=== PATIENT | male | born 1965 | race African-American/Black ===

== ENCOUNTER 2017-03-19 07:04 | Emergency (ER) | payer MEDICARE, MEDICAID ==
[~2017-03-19] VITALS: Ht 190.5 cm; Wt 86.0 kg
[2017-03-19 08:25] VITALS: BP 120/80
== END 2017-03-19 08:41 | disposition home or self-care (01) ==
LOC: ER 07:04
DX: N48.1 Balanitis (principal); B37.0 Candidal stomatitis; F17.200 Nicotine dependence, unspecified, uncomplicated; Z88.0 Allergy status to penicillin
CPT/HCPCS: 99283

== ENCOUNTER 2017-09-08 07:18 | Emergency (ER) | payer MEDICARE, MEDICAID ==
[~2017-09-08] VITALS: Ht 190.5 cm; Wt 87.0 kg
[2017-09-08] MEDS ORDERED: KETOROLAC 60MG/2ML VIAL IM ONE (08:15)
[2017-09-08 09:40] VITALS: BP 139/98
== END 2017-09-08 10:13 | disposition home or self-care (01) ==
LOC: ER 07:26
DX: M13.871 Other specified arthritis, right ankle and foot (principal); Z88.0 Allergy status to penicillin; F17.200 Nicotine dependence, unspecified, uncomplicated; Z98.890 Other specified postprocedural states
CPT/HCPCS: 73630; 96372; 99284; J1885

== ENCOUNTER 2018-05-05 10:13 | Emergency (ER) | payer MEDICARE, MEDICAID ==
[~2018-05-05] VITALS: Ht 188 cm; Wt 87.0 kg
[2018-05-05 12:48] VITALS: BP 130/90
== END 2018-05-05 12:50 | disposition home or self-care (01) ==
LOC: ER 10:13
DX: N48.1 Balanitis (principal); R03.0 Elevated blood-pressure reading, without diagnosis of hypertension; F12.90 Cannabis use, unspecified, uncomplicated
CPT/HCPCS: 99283

== ENCOUNTER 2018-12-14 11:58 | Emergency (ER) | payer MEDICARE, MEDICAID ==
[~2018-12-14] VITALS: Ht 190.5 cm; Wt 84.0 kg
[2018-12-14] MEDS ORDERED: KETOROLAC 60MG/2ML VIAL IM ONE (12:45)
[2018-12-14 14:20] VITALS: BP 101/72
== END 2018-12-14 14:25 | disposition home or self-care (01) ==
LOC: ER 11:58
DX: S50.01XA Contusion of right elbow, initial encounter (principal); W01.198A Fall on same level from slipping, tripping and stumbling with subsequent striking against other object, initial encounter; Y93.E5 Activity, floor mopping and cleaning; Y92.89 Other specified places as the place of occurrence of the external cause
CPT/HCPCS: 73060; 73090; 96372; 99283; J1885

== ENCOUNTER 2019-04-13 08:29 | Emergency (ER) | payer MEDICARE, MEDICAID ==
[~2019-04-13] VITALS: Ht 190.5 cm; Wt 86.0 kg
[2019-04-13] MEDS ORDERED: CARBAMIDE PEROXIDE 6.5% OTIC SOLN 15ML LEFT EAR ONE (09:15)
[2019-04-13 11:40] VITALS: BP 136/70
== END 2019-04-13 11:49 | disposition home or self-care (01) ==
LOC: ER 08:29
DX: H61.22 Impacted cerumen, left ear (principal); S00.432A Contusion of left ear, initial encounter; W21.03XA Struck by baseball, initial encounter; Y93.89 Activity, other specified; Y92.89 Other specified places as the place of occurrence of the external cause
CPT/HCPCS: 70486; 99284

== ENCOUNTER 2019-10-09 07:57 | Emergency (ER) | payer MEDICARE, MEDICAID ==
[~2019-10-09] VITALS: Ht 190.5 cm; Wt 78.0 kg
[2019-10-09] MEDS ORDERED: [UNRECOGNIZED DRUG - OTHER] (08:05)
[2019-10-09] MEDS ORDERED: POLYVINYL ALCOHOL OPHTH DROPS 15ML LEFTEYE STA (08:18)
[2019-10-09] MEDS ORDERED: VALACYCLOVIR HCL 500MG TABLET PO STA (08:18)
[2019-10-09] MEDS ORDERED: PREDNISONE 20MG TABLET PO ONE (08:30)
[2019-10-09 08:40] LABS: BASOPHILS % 1.2 % (0.0-2.0); EOSINOPHILS % 1.7 % (0.0-5.0); HEMATOCRIT. 37.3 % (42.0-52.0); HEMOGLOBIN. 12.5 g/dL (14.0-18.0); LYMPHOCYTES % 57.4 % (20.0-50.0); MEAN CORPUSCULAR VOLUME 92.2 fL (80.0-94.0); MEAN PLATELET VOLUME 8.1 fl (7.4-10.4); MONOCYTES % 11.3 % (2.0-8.0); NEUTROPHILS % 28.4 % (40.0-76.0); PLATELET 196 x1000/uL (130-400); RED BLOOD CELL COUNT 4.04 mill/uL (4.7-6.1); RED CELL DISTRIBUTION WIDTH 15.3 % (11.6-14.6)
[2019-10-09 08:43] LABS: CHLORIDE 108 mEq/L (98-107)
[2019-10-09 08:47] LABS: ETHANOL BLOOD < 10 mg/dL
[2019-10-09 10:17] LABS: CLARITY URINE CLEAR (CLEAR); COLOR URINE YELLOW (YELLOW); KETONES URINE NEGATIVE (NEGATIVE); LEUKOCYTE ESTERASE URINE NEGATIVE (NEGATIVE); NITRITE URINE NEGATIVE (NEGATIVE); OCCULT BLOOD URINE NEGATIVE (NEGATIVE); PROTEIN URINE NEGATIVE (NEGATIVE); SPECIFIC GRAVITY URINE 1.022 (1.005-1.030)
[2019-10-09 10:33] LABS: *AMPHETAMINES SCREEN URINE NEGATIVE (NEGATIVE); *BARBITURATES SCREEN URINE NEGATIVE (NEGATIVE); *BENZODIAZEPINES SCREEN URINE NEGATIVE (NEGATIVE); *COCAINE SCREEN URINE NEGATIVE (NEGATIVE); METHADONE URINE SCREEN NEGATIVE (NEGATIVE); OPIATES URINE SCREEN NEGATIVE (NEGATIVE)
[2019-10-09 10:34] LABS: CANNABINOID URINE SCREEN NEGATIVE (NEGATIVE); PHENCYCLIDINE URINE SCREEN NEGATIVE (NEGATIVE)
[2019-10-09 10:47] VITALS: BP 115/74
== END 2019-10-09 10:48 | disposition home or self-care (01) ==
LOC: ER 07:57
DX: G51.0 Bell's palsy (principal); R03.0 Elevated blood-pressure reading, without diagnosis of hypertension; F12.90 Cannabis use, unspecified, uncomplicated
CPT/HCPCS: 36415; 70450; 71045; 80053; 80305; 80320; 81003; 85025; 99284; J7512; G0480

== ENCOUNTER 2020-06-16 06:23 | Emergency (ER) | payer MEDICARE, MEDICAID ==
[~2020-06-16] VITALS: Ht 182.9 cm; Wt 75.0 kg
[~2020-06-16 06:23] MED LIST: [UNRECOGNIZED DRUG - OTHER]
[2020-06-16 06:43] VITALS: BP 115/77
[2020-06-16] MEDS ORDERED: IBUPROFEN 600MG TABLET PO ONE (06:45)
== END 2020-06-16 07:46 | disposition left against medical advice (07) ==
LOC: ER 06:23
DX: S90.31XA Contusion of right foot, initial encounter (principal); X31.XXXA Exposure to excessive natural cold, initial encounter; Y93.89 Activity, other specified; Y92.89 Other specified places as the place of occurrence of the external cause; Y99.8 Other external cause status; F12.10 Cannabis abuse, uncomplicated; Z88.0 Allergy status to penicillin
CPT/HCPCS: 99282

== ENCOUNTER 2020-09-26 09:22 | Emergency (ER) | payer MEDICARE, MEDICAID ==
[~2020-09-26] VITALS: Ht 182.9 cm; Wt 75.0 kg
[2020-09-26] MEDS ORDERED: ONDANSETRON HCL 4MG/2ML INJ IV STA (09:36)
[2020-09-26] MEDS ORDERED: MORPHINE SULFATE 4 MG/ML CPJ (NOT FOR IM USE) IV STA (09:36)
[2020-09-26] MEDS ORDERED: SODIUM CHLORIDE 0.9% 1,000 ML IV ONE (09:45)
[2020-09-26 10:01] LABS: HEMATOCRIT. 36.7 % (42.0-52.0); HEMOGLOBIN. 12.2 g/dL (14.0-18.0); MEAN CORPUSCULAR HEMOGLOBIN 30.6 pg (28.0-32.0); MEAN CORPUSCULAR VOLUME 92.4 fL (80.0-94.0); MEAN PLATELET VOLUME 8.2 fl (7.4-10.4); PLATELET 223 x1000/uL (130-400); RED BLOOD CELL COUNT 3.97 mill/uL (4.7-6.1)
[2020-09-26 10:04] LABS: CHLORIDE 104 mEq/L (98-107)
[2020-09-26 10:08] LABS: ETHANOL BLOOD < 10 mg/dL
[2020-09-26 10:09] LABS: CLARITY URINE CLEAR (CLEAR); COLOR URINE YELLOW (YELLOW); KETONES URINE TRACE (NEGATIVE); LEUKOCYTE ESTERASE URINE 1+ (NEGATIVE); NITRITE URINE NEGATIVE (NEGATIVE); OCCULT BLOOD URINE NEGATIVE (NEGATIVE); PH URINE 6.5 (4.5-8.0); PROTEIN URINE 1+ (NEGATIVE); SPECIFIC GRAVITY URINE 1.027 (1.005-1.030)
[2020-09-26 10:16] LABS: PLATELET ESTIMATE NORMAL
[2020-09-26 10:27] LABS: CANNABINOID URINE SCREEN PRESUMTIVE POSITIVE (NEGATIVE)
[2020-09-26 10:28] LABS: *AMPHETAMINES SCREEN URINE NEGATIVE (NEGATIVE); *BARBITURATES SCREEN URINE NEGATIVE (NEGATIVE); *BENZODIAZEPINES SCREEN URINE NEGATIVE (NEGATIVE); *COCAINE SCREEN URINE PRESUMTIVE POSITIVE (NEGATIVE); METHADONE URINE SCREEN NEGATIVE (NEGATIVE); OPIATES URINE SCREEN NEGATIVE (NEGATIVE)
[2020-09-26 10:29] LABS: PHENCYCLIDINE URINE SCREEN NEGATIVE (NEGATIVE)
[2020-09-26 11:15] LABS: INR 1.1; PROTHROMBIN TIME 11.6 sec (9.6-11.0)
[2020-09-26] MEDS ORDERED: IBUP-2029 MT (13:37)
[2020-09-26] MEDS ORDERED: LEVO500T89 MT (13:37)
[2020-09-26] MEDS ORDERED: TAMS-11 MT (13:37)
[2020-09-26 13:40] VITALS: BP 129/83
== END 2020-09-26 14:01 | disposition home or self-care (01) ==
LOC: ER 09:22
DX: N20.0 Calculus of kidney (principal); N39.0 Urinary tract infection, site not specified; F14.129 Cocaine abuse with intoxication, unspecified; R03.0 Elevated blood-pressure reading, without diagnosis of hypertension
CPT/HCPCS: 36415; 71045; 74176; 76705; 80053; 80305; 80320; 81003; 83690; 84484; 85025; 85610; 93005; 96374; 96375; 99285; J2270; J2405; J7030; G0480

== ENCOUNTER 2021-06-09 05:49 | Emergency (ER) | payer MEDICARE, MEDICAID ==
[~2021-06-09] VITALS: Ht 188 cm; Wt 88.0 kg
[~2021-06-09 05:49] MED LIST changes: +IBUP-2029 MT; +LEVO500T89 MT; +TAMS-11 MT
[2021-06-09 06:37] VITALS: BP 124/78
[2021-06-09] MEDS ORDERED: ACETAMINOPHEN WITH CODEINE 300/30MG TABLET PO ONE (07:00)
[2021-06-09] MEDS ORDERED: T3 PO (08:51)
== END 2021-06-09 09:21 | disposition home or self-care (01) ==
LOC: ER 05:49
DX: M54.9 Dorsalgia, unspecified (principal); I10 Essential (primary) hypertension; F12.10 Cannabis abuse, uncomplicated; Z98.890 Other specified postprocedural states; Z96.659 Presence of unspecified artificial knee joint
CPT/HCPCS: 71045; 72070; 99284

== ENCOUNTER → 2021-07-29 | Outpatient (CLI) | payer MEDICARE, MEDICAID ==
[~2021-07-29] MED LIST changes: +AMLO10TA80 MT; +T3 PO; +TRIVICAY PO
[2021-07-29 09:31] LABS: EOSINOPHILS % 3.4 % (0.0-5.0); HEMATOCRIT. 39.9 % (42.0-52.0); HEMOGLOBIN. 13.4 g/dL (14.0-18.0); LYMPHOCYTES % 58.6 % (20.0-50.0); MEAN CORPUSCULAR HEMOGLOBIN 31.6 pg (28.0-32.0); MEAN PLATELET VOLUME 7.6 fl (7.4-10.4); MONOCYTES % 9.6 % (2.0-8.0); NEUTROPHILS % 27.4 % (40.0-76.0); PLATELET 239 x1000/uL (130-400); RED BLOOD CELL COUNT 4.25 mill/uL (4.7-6.1); RED CELL DISTRIBUTION WIDTH 14.3 % (11.6-14.6)
[2021-07-29 09:36] LABS: CHLORIDE 110 mEq/L (98-107)
[2021-07-29 11:14] LABS: PROSTRATE SPECIFIC AG TOTAL 1.54 ng/mL (0.0-4.0)
[2021-07-29 11:20] LABS: CARCINO EMBRYONIC ANTIGEN < 0.5 ng/ml
[2021-07-30 09:09] LABS: KAPPA/LAMBDA RATIO 1.85 (0.26-1.65); LAMBDA LT CHAINS FREE SERUM 64.3 mg/L (5.7-26.3)
== END | disposition home or self-care (01) ==
LOC: LAB 09:01
PROVIDERS: ATTEND Internal Medicine Hematology & Oncology
DX: D47.2 Monoclonal gammopathy (principal)
CPT/HCPCS: 36415; 80053; 82378; 82784; 83883; 84153; 85025; 86334; G0103

== ENCOUNTER → 2021-08-08 | Outpatient (CLI) | payer MEDICARE, MEDICAID | END | disposition home or self-care (01) | LOC: RAD 08:57 | PROVIDERS: ATTEND Internal Medicine Hematology & Oncology | DX: M85.88 Other specified disorders of bone density and structure, other site (principal); M48.52XA Collapsed vertebra, not elsewhere classified, cervical region, initial encounter for fracture; M48.56XA Collapsed vertebra, not elsewhere classified, lumbar region, initial encounter for fracture; M47.812 Spondylosis without myelopathy or radiculopathy, cervical region; D47.2 Monoclonal gammopathy; M48.02 Spinal stenosis, cervical region | CPT/HCPCS: 77075 ==

== ENCOUNTER → 2021-08-11 | Day surgery (SDC) | payer MEDICARE, MEDICAID ==
[~2021-08-11] VITALS: Ht 190.5 cm; Wt 86.2 kg
[~2021-08-11] MED LIST changes: +HYDROMORPHONE HCL/PF 2MG/ML (OR) ONE; +LACTATED RINGERS 1,000 ML IV SCH; +LIDOCAINE HCL 1% 20ML VIAL (Pyxis) INJ ONE; +PROPOFOL 200MG/20ML VIAL IV ONE
== END | disposition home or self-care (01) ==
LOC: OR 07:28
PROVIDERS: ATTEND Pathology Anatomic Pathology & Clinical Pathology
DX: C90.00 Multiple myeloma not having achieved remission (principal); D47.2 Monoclonal gammopathy; I10 Essential (primary) hypertension; J44.9 Chronic obstructive pulmonary disease, unspecified; F32.9 Major depressive disorder, single episode, unspecified; K21.9 Gastro-esophageal reflux disease without esophagitis; Z79.899 Other long term (current) drug therapy; Z98.890 Other specified postprocedural states; Z72.89 Other problems related to lifestyle; Z82.49 Family history of ischemic heart disease and other diseases of the circulatory system; Z83.3 Family history of diabetes mellitus; Z88.0 Allergy status to penicillin; Z20.822 Contact with and (suspected) exposure to COVID-19
CPT/HCPCS: 38220; 85060; 85097; 87426; 88313; 93005; J1170; J2704; J3490

== ENCOUNTER 2022-06-27 07:35 | Emergency (ER) | payer MEDICARE, MEDICAID ==
[~2022-06-27] VITALS: Ht 182.9 cm; Wt 91.0 kg
[~2022-06-27 07:35] MED LIST changes: -HYDROMORPHONE HCL/PF 2MG/ML (OR) ONE; -LACTATED RINGERS 1,000 ML IV SCH; +LEVO-65 MT; -LEVO500T89 MT; -LIDOCAINE HCL 1% 20ML VIAL (Pyxis) INJ ONE; -PROPOFOL 200MG/20ML VIAL IV ONE
[2022-06-27 07:40] VITALS: BP 141/93
[2022-06-27] MEDS ORDERED: CLOT15CR27 TP (09:06)
== END 2022-06-27 09:11 | disposition home or self-care (01) ==
LOC: ER 07:57
DX: N48.1 Balanitis (principal); I10 Essential (primary) hypertension; Z87.442 Personal history of urinary calculi
CPT/HCPCS: 82962; 99281

== ENCOUNTER 2023-03-26 04:17 | Emergency (ER) | payer MEDICARE, MEDICAID ==
[~2023-03-26] VITALS: Ht 177.8 cm; Wt 100.0 kg
[~2023-03-26 04:17] MED LIST changes: +CLOT15CR27 TP
[2023-03-26 04:20] VITALS: TEMP 98.1; O2SAT 98
[2023-03-26 05:20] LABS: BASOPHILS % 0.6 % (0.0-2.0); EOSINOPHILS % 1.9 % (0.0-5.0); HEMATOCRIT. 43.9 % (42.0-52.0); HEMOGLOBIN. 14.5 g/dL (14.0-18.0); MEAN CORPUSCULAR HEMOGLOBIN 31.5 pg (28.0-32.0); MEAN CORPUSCULAR VOLUME 95.2 fL (80.0-94.0); MEAN PLATELET VOLUME 7.6 fl (7.4-10.4); MONOCYTES % 9.8 % (2.0-8.0); NEUTROPHILS % 35.7 % (40.0-76.0); PLATELET 280 x1000/uL (130-400); RED BLOOD CELL COUNT 4.61 mill/uL (4.7-6.1); RED CELL DISTRIBUTION WIDTH 15.3 % (11.6-14.6); WHITE BLOOD COUNT 4.7 x1000/uL (4.5-11.0)
[2023-03-26 05:28] LABS: CHLORIDE 110 mEq/L (98-107); INDEX HEMOLYSI 1 (1-3); INDEX ICTERIC 1 (1-4); INDEX LIPEMIC 1 (1-3); POTASSIUM 4.2 mEq/L (3.5-5.1); SODIUM 141 mEq/L (136-145)
[2023-03-26 05:38] LABS: ALANINE AMINOTRANSFERASE 47 IU/L (13-61); ALBUMIN 3.3 g/dL (3.4-5.0); ASPARTATE AMINOTRANSFERASE 40 IU/L (15-37); BILIRUBIN TOTAL 0.3 mg/dL (0.1-1.0); CALCIUM 8.8 mg/dL (8.5-10.1); CARBON DIOXIDE 29 mEq/L (21-32); CREATININE 0.9 mg/dL (0.6-1.3); GLUCOSE 109 mg/dL (70-105); PROTEIN TOTAL 7.9 g/dL (6.0-8.3); TROPONIN I HIGH SENSITIVITY 6 ng/L (<78); UREA NITROGEN BLOOD 12 mg/dL (7-21)
[2023-03-26 08:54] VITALS: BP 120/78; PULSE 80; RESP 20
== END 2023-03-26 08:55 | disposition home or self-care (01) ==
LOC: ER 04:17
DX: R00.2 Palpitations (principal); F12.10 Cannabis abuse, uncomplicated; I10 Essential (primary) hypertension; Z88.0 Allergy status to penicillin
CPT/HCPCS: 36415; 71045; 80053; 84484; 85025; 93005; 99285

== ENCOUNTER 2024-02-18 07:22 | Emergency (ER) | payer MEDICARE, MEDICAID ==
[~2024-02-18] VITALS: Ht 190.5 cm; Wt 90.7 kg
[2024-02-18 07:32] VITALS: O2SAT 98
[2024-02-18 08:38] LABS: BASOPHILS % 0.3 % (0.0-2.0); EOSINOPHILS % 6.1 % (0.0-5.0); HEMATOCRIT. 40.7 % (42.0-52.0); HEMOGLOBIN. 13.6 g/dL (14.0-18.0); LYMPHOCYTES % 60.3 % (20.0-50.0); MEAN CORPUSCULAR HEMOGLOBIN 30.9 pg (28.0-32.0); MEAN CORPUSCULAR HGB CONC 33.4 g/dL (31.0-37.0); MEAN CORPUSCULAR VOLUME 92.3 fL (80.0-94.0); MEAN PLATELET VOLUME 7.8 fl (7.4-10.4); MONOCYTES % 11.1 % (2.0-8.0); NEUTROPHILS % 22.2 % (40.0-76.0); PLATELET 279 x1000/uL (130-400); RED BLOOD CELL COUNT 4.41 mill/uL (4.7-6.1); RED CELL DISTRIBUTION WIDTH 15.1 % (11.6-14.6); WHITE BLOOD COUNT 6.6 x1000/uL (4.5-11.0)
[2024-02-18 08:39] LABS: CLARITY URINE CLOUDY (CLEAR); COLOR URINE YELLOW (YELLOW); GLUCOSE URINE NEGATIVE (NEGATIVE); KETONES URINE NEGATIVE (NEGATIVE); LEUKOCYTE ESTERASE URINE 1+ (NEGATIVE); NITRITE URINE NEGATIVE (NEGATIVE); OCCULT BLOOD URINE NEGATIVE (NEGATIVE); PH URINE 6.5 (4.5-8.0); PROTEIN URINE TRACE (NEGATIVE); SPECIFIC GRAVITY URINE 1.022 (1.005-1.030)
[2024-02-18 08:45] LABS: CHLORIDE 106 mEq/L (98-107); SODIUM 137 mEq/L (136-145)
[2024-02-18 08:46] LABS: CARBON DIOXIDE 29 mEq/L (21-32)
[2024-02-18 08:47] LABS: CALCIUM 8.9 mg/dL (8.7-10.4)
[2024-02-18 08:51] LABS: CREATININE 0.9 mg/dL (0.6-1.3); GLUCOSE 90 mg/dL (70-105)
[2024-02-18 08:52] LABS: UREA NITROGEN BLOOD 9 mg/dL (9-23)
[2024-02-18 08:53] LABS: ALANINE AMINOTRANSFERASE 26 IU/L (10-49); ASPARTATE AMINOTRANSFERASE 27 IU/L (<34)
[2024-02-18 08:54] LABS: BACTERIA URINE 1+; SQUAMOUS EPITHELIAL CELL URINE NONE SEEN /lpf (RARE/1+); YEAST URINE NONE SEEN
[2024-02-18 08:54] LABS: ALBUMIN 3.7 g/dL (3.2-4.8); BILIRUBIN TOTAL 0.5 mg/dL (0.1-1.0)
[2024-02-18] MEDS ORDERED: MUPI22OI2 TP (09:30)
[2024-02-18] MEDS ORDERED: CLOT15CR27 TP (09:30)
[2024-02-18 09:32] LABS: PROTEIN TOTAL 10.2 g/dL (6.0-8.3)
[2024-02-18 09:40] VITALS: BP 124/78; PULSE 89; RESP 16; TEMP 98.1
== END 2024-02-18 10:31 | disposition home or self-care (01) ==
LOC: ER 07:22
DX: N48.1 Balanitis (principal); F12.10 Cannabis abuse, uncomplicated; I10 Essential (primary) hypertension; Z88.0 Allergy status to penicillin; Z79.899 Other long term (current) drug therapy; Z98.890 Other specified postprocedural states
CPT/HCPCS: 36415; 80053; 81003; 85025; 99283